=== PATIENT | male | born 1985 | race Caucasian/White ===

== ENCOUNTER 2017-02-11 22:19 | Emergency (ER) | payer SELFPAY ==
[2017-02-11 22:20] VITALS: BMI 24.9
== END 2017-02-11 23:43 | disposition left against medical advice (07) ==
LOC: ED 22:19
DX: Z02.89 Encounter for other administrative examinations (principal); F10.10 Alcohol abuse, uncomplicated

== ENCOUNTER 2017-02-12 02:53 | Observation (INO) | payer SELFPAY ==
[2017-02-12 02:53] VITALS: BMI 24.9
--- NOTE | 2017-02-12 03:58 | ED PDOC ---
Arrival/HPI - General Historian: Patient - History of Present Illness Symptom Onset: Gradual Severity Level: Mild Activities at Onset: Light <Yogi Ash - Last Filed: 02/12/17 06:57> <Jose Manuel Bennett - Last Filed: 02/12/17 10:12> - General Time Seen by Provider: 02/12/17 03:44 - History of Present Illness Narrative History of Present Illness (Text): 02/12/17 03:55 Krunal Landa is a 31 year old male who presents to the emergency department via EMS for intoxication. Patient admits to drinking alcohol throughout the day. Patient does not endorse any other complaints. HPI and ROS limited due to intoxication. (Yogi Ash) Past Medical History - Provider Review Nursing Documentation Reviewed: Yes - Infectious Disease Hx of Infectious Diseases: None - Tetanus Immunization Tetanus Immunization: Unknown - Past Medical History Past Medical History: No Previous - Cardiac Hx Cardiac Disorders: No Hx Hypertension: No - Pulmonary Hx Tuberculosis: No - Neurological HX Cerebrovascular Accident: No Hx Seizures: No - Hematological/Oncological Hx Cancer: No - Musculoskeletal/Rheumatological Hx Falls: No - Gastrointestinal Hx Gastrointestinal Disorders: No - Genitourinary/Gynecological Hx Sexually Transmitted Diseases: No - Psychiatric Hx Psychophysiologic Disorder: Yes Hx Anxiety: No Hx Bipolar Disorder: No Hx Depression: No Hx Emotional Abuse: No Hx Physical Abuse: No Hx Schizophrenia: No Hx Sexual Abuse: No Hx Substance Use: No - Past Surgical History Past Surgical History: No Previous - Anesthesia Hx Anesthesia: No Hx Anesthesia Reactions: No Hx Malignant Hyperthermia: No - Suicidal Assessment Feels Threatened In Home Enviroment: No <Yogi Ash - Last Filed: 02/12/17 06:57> Family/Social History - Physician Review Nursing Documentation Reviewed: Yes Family/Social History: No Known Family HX Smoking Status: Former Smoker Hx Alcohol Use: Yes Hx Substance Use: No Substance used: cocaine Hx Substance Use Treatment: No <Yogi Ash - Last Filed: 02/12/17 06:57> Allergies/Home Meds <Yogi Ash - Last Filed: 02/12/17 06:57> <Jose Manuel Bennett - Last Filed: 02/12/17 10:12> Allergies/Adverse Reactions: Allergies No Known Allergies Allergy (Verified 10/28/15 23:53) Home Medications: Home Meds Medication Instructions Recorded Confirmed Risperidone [Risperdal] 2 mg PO HS 11/06/15 11/06/15 Review of Systems - Review of Systems Systems not reviewed;Unavailable: Intoxicated <Yogi Ash - Last Filed: 02/12/17 06:57> Physical Exam Vital Signs Reviewed: Yes Temperature: Afebrile Blood Pressure: Normal Pulse: Regular Respiratory Rate: Normal Appearance: Positive for: Well-Appearing Pain Distress: None Mental Status: Positive for: Alert and Oriented X 3 - Systems Exam Head: Present: Atraumatic, Normocephalic Pupils: Present: PERRL Extroacular Muscles: Present: EOMI Conjunctiva: Present: Normal Mouth: Present: Moist Mucous Membranes Respiratory/Chest: Present: Clear to Auscultation, Good Air Exchange. No: Respiratory Distress, Accessory Muscle Use Cardiovascular: Present: Regular Rate and Rhythm, Normal S1, S2. No: Murmurs Abdomen: Present: Normal Bowel Sounds. No: Tenderness, Distention, Peritoneal Signs, Rebound, Guarding Upper Extremity: Present: Normal Inspection. No: Cyanosis, Edema Lower Extremity: Present: Normal Inspection. No: Edema Neurological: Present: GCS=15, CN II-XII Intact, Speech Normal, Motor Func Grossly Intact, Normal Sensory Function Skin: Present: Warm, Dry, Normal Color. No: Rashes Psychiatric: Present: Alert, Oriented x 3, Intoxicated <Yogi Ash - Last Filed: 02/12/17 06:57> ED OBSERVATION <Yogi Ash - Last Filed: 02/12/17 06:57> Discharge: Yes Date of observation admission: 02/12/17 Time of observation admission: 06:58 <Jose Manuel Bennett - Last Filed: 02/12/17 10:12> - Observation admission statement Patient is being placed in observation because:: alcohol intoxication (Jose Manuel Bennett) - Goals of Observation Goals of observation are:: Pending sobriety. (Jose Manuel Bennett) - Progress Note Progress Note: 02/12/17 07:00 Patient is resting, pending sobriety. No complaints. 02/12/17 09:40 Patient is awake, alert, and ambulating with steady gait. Patient does not show slurred speech and is clinically sober. (Rabines,Jose Manuel L) - Scribe Statement The provider has reviewed the documentation as recorded by the Scribe <Yogi Ash - Last Filed: 02/12/17 06:57> <Jose Manuel Bennett - Last Filed: 02/12/17 10:12> - Scribe Statement Marcos Hernandez (Yogi Ash) Provider Attestation: Provider Scribe Attestation: All medical record entries made by the Scribe were at my direction and personally dictated by me. I have reviewed the chart and agree that the record accurately reflects my personal performance of the history, physical exam, medical decision making, and the department course for this patient. I have also personally directed, reviewed, and agree with the discharge instructions and disposition. (Yogi Ash) Disposition/Present on Arrival - Present on Arrival History of DVT/PE: No History of Uncontrolled Diabetes: No Urinary Catheter: No History Surgical Site Infection Following: None <Yogi Ash - Last Filed: 02/12/17 06:57> - Present on Arrival Any Indicators Present on Arrival: No - Disposition Have Diagnosis and Disposition been Completed?: Yes Disposition Time: 10:12 Patient Plan: Discharge <Jose Manuel Bennett - Last Filed: 02/12/17 10:12> - Disposition Diagnosis: Alcohol intoxication Disposition: HOME/ ROUTINE Condition: IMPROVED
[2017-02-12 03:59] VITALS: TEMP 98.1
[2017-02-12 09:05] VITALS: BP 127/93; PULSE 95; RESP 16; O2SAT 97
== END 2017-02-12 09:42 | disposition home or self-care (01) ==
LOC: ED 02:53 → EROBSV 04:00
PROVIDERS: ADMIT Emergency Medicine; ATTEND Emergency Medicine
DX: F10.129 Alcohol abuse with intoxication, unspecified (principal)
CPT/HCPCS: 99283; G0378